=== PATIENT | male | born 1995 | race Caucasian/White ===

== ENCOUNTER → 2017-05-09 | Outpatient (REF) | payer OTHER | LOC: M SFHCPLAZ 10:25 | PROVIDERS: ATTEND Nurse Practitioner Family | DX: R30.0 Dysuria (principal) ==

== ENCOUNTER 2018-07-10 08:20 | Emergency (ER) | payer BC, OTHER ==
[2018-07-10] MEDS: diazePAM 5 MG TAB PO (09:43)
[2018-07-10] MEDS: KETOROLAC 60 MG/2 ML VIAL (J1885) IM (09:44)
== END 2018-07-10 10:11 | disposition home or self-care (01) ==
LOC: M ED 08:20
DX: M54.42 Lumbago with sciatica, left side (principal); S39.012A Strain of muscle, fascia and tendon of lower back, initial encounter; X50.1XXA Overexertion from prolonged static or awkward postures, initial encounter; Y92.59 Other trade areas as the place of occurrence of the external cause; Y99.0 Civilian activity done for income or pay
CPT/HCPCS: J1885

== ENCOUNTER → 2024-11-04 | Outpatient (REF) | payer BC ==
[~2024-11-04] MED LIST: MOTR200T44 PO; NAPR-837 PO; ROBA500T PO
== END ==
LOC: M LAB REF 12:12
PROVIDERS: ATTEND Internal Medicine
DX: R68.82 Decreased libido (principal)

== ENCOUNTER → 2024-11-18 | Outpatient (REF) | payer OTHER ==
[2024-11-18 14:35] LABS: PERCENT SATURATION 45.3 % (19.7-50.0)
[2024-11-18 14:37] LABS: FERRITIN 313.9 NG/ML (10.5-307.3); FOLLICLE STIMULATING HORMONE 6.8 mIU/ML (1.4-18.1); LUTEINIZING HORMONE 3.2 mIU/ML (1.5-9.3)
== END ==
LOC: M LAB REF 12:14
PROVIDERS: ATTEND Internal Medicine
DX: R68.82 Decreased libido (principal); E29.1 Testicular hypofunction; R74.01 Elevation of levels of liver transaminase levels